=== PATIENT | female | born 1965 | race Caucasian/White ===

== ENCOUNTER 2022-06-09 13:45 | Outpatient (CLI) | payer BC | END 2022-06-09 13:46 | disposition home or self-care (01) | LOC: TBSIIMAG 13:45 | PROVIDERS: ATTEND Specialist | DX: M51.16 Intervertebral disc disorders with radiculopathy, lumbar region (principal); M47.26 Other spondylosis with radiculopathy, lumbar region; M48.061 Spinal stenosis, lumbar region without neurogenic claudication | CPT/HCPCS: 72148 ==

== ENCOUNTER 2023-09-24 13:06 | Outpatient (CLI) | payer BC | END 2023-09-24 13:07 | disposition home or self-care (01) | LOC: LABBT 13:06 | PROVIDERS: ATTEND Surgery | DX: Z01.810 Encounter for preprocedural cardiovascular examination (principal); M54.16 Radiculopathy, lumbar region; M71.38 Other bursal cyst, other site | CPT/HCPCS: 80048; 85027; 85610; 85730; 86850; 86900; 86901; 93005; 93010 ==

== ENCOUNTER 2023-09-28 06:02 | Inpatient (IN) | payer BC ==
[2023-09-24 13:39] VITALS: BMI 26.5
[2023-09-24 14:24] LABS: Hematocrit 42.1 % (34.9-44.5); Mean Corpuscular HGB CONC 33.3 g/dL (32.0-36.0); Mean Corpuscular Volume 87.2 fl (81.6-98.3); Mean Platelet Volume 8.9 fl (7.4-10.4); Platelet Count 343 10x3/uL (150-450); RBC Distribution Width 13.2 % (11.5-14.5); Red Blood Cell (RBC) Count 4.83 10x6/uL (3.90-5.03); White Blood Cell (WBC) Count 5.3 10x3/uL (3.5-10.5)
[2023-09-24 14:29] LABS: INR-International Normal Ratio 0.9; PTT 27.3 sec (22.0-33.0); Prothrombin Time 9.6 sec (9.5-12.1)
[2023-09-24 14:30] LABS: Anion Gap 13 mmol/L (10-20); BUN (Urea Nitrogen) 9 mg/dL (9.8-20.1); Calc. Creatinine Clearance 0 mL/min (70-130); Calcium 9.5 mg/dL (7.8-10.44); Carbon Dioxide 27 mmol/L (22-29); Chloride 101 mmol/L (98-107); Estimated GFR 79; Glucose 92 mg/dL (70-105); Potassium 4.5 mmol/L (3.5-5.1); Sodium 136 mmol/L (136-145)
[2023-09-28] MEDS ORDERED: Vancomycin 1 GM VIAL ONE (06:55)
[2023-09-28] MEDS ORDERED: Thrombin 5000 UNITS/5 ML VIAL ONE (06:55)
[2023-09-28] MEDS ORDERED: Sodium Chloride 0.9% 100 ML ONE ×2 (07:16→08:44)
[2023-09-28] MEDS ORDERED: CEFAZOLIN 2 GM VIAL ONE (07:16)
[2023-09-28] MEDS ORDERED: Esmolol 100 MG/10 ML VIAL ONE (07:19)
[2023-09-28] MEDS ORDERED: Ondansetron PF 4 MG/2 ML Vial ONE (07:19)
[2023-09-28] MEDS ORDERED: Rocuronium Bromide 10 MG/ML (10ML VIAL) ONE (07:19)
[2023-09-28] MEDS ORDERED: PROPOFOL 60 ML ONE (07:19)
[2023-09-28] MEDS ORDERED: Dexamethasone 4 mg/ml Vial ONE (07:19)
[2023-09-28] MEDS ORDERED: Midazolam HCl 2 mg/2 ml Vial ONE (07:20)
[2023-09-28] MEDS ORDERED: Lidocaine 1% PF 5 ML VIAL ONE (07:20)
[2023-09-28] MEDS ORDERED: HYDROmorphone 2 MG/ML VIAL ONE (07:20)
[2023-09-28] MEDS ORDERED: Ketorolac Tromethamine 30 MG (1 mL) VIAL ONE (08:05)
[2023-09-28] MEDS ORDERED: Phenylephrine 10 MG/ML VIAL ONE (08:44)
[2023-09-28] MEDS ORDERED: Dexamethasone 20 MG/5 ML VIAL ONE (08:55)
[2023-09-28] MEDS ORDERED: SUGAMMADEX SODIUM 200 MG/2 ML VIAL ONE (09:53)
[2023-09-28] MEDS ORDERED: diphenhydrAMINE 25 MG CAP PO PRN (10:47)
[2023-09-28] MEDS ORDERED: Ketorolac Tromethamine 30 MG (1 mL) VIAL IVP PRN (10:47)
[2023-09-28] MEDS ORDERED: Acetaminophen 325 MG TAB PO PRN (10:47)
[2023-09-28] MEDS ORDERED: Milk Of Magnesia 30 ML UDCUP PO PRN (10:47)
[2023-09-28] MEDS ORDERED: tiZANidine HCl 4 MG TAB PO PRN (10:50)
[2023-09-28] MEDS ORDERED: fentaNYL 50 mcg/mL 1 mL Vial ONE (10:52)
[2023-09-28] MEDS ORDERED: Ondansetron PF 4 MG/2 ML Vial IVP PRN (11:30)
[2023-09-28] MEDS ORDERED: Naloxone HCl 0.4 mg/ml Vial IV PRN (11:30)
[2023-09-28] MEDS ORDERED: Zolpidem Tartrate 5 MG TAB PO PRN (11:30)
[2023-09-28] MEDS ORDERED: Fentanyl CADD 100 ML IVPB SCH (11:30)
[2023-09-28] MEDS ORDERED: Promethazine HCl 25 MG/ML VIAL IM PRN (11:30)
[2023-09-28] MEDS: Sodium Chloride 0.9% 1,000 ML IV SCH (13:45)
[2023-09-28] MEDS: Dexamethasone 4 MG TAB PO SCH (16:39)
[2023-09-28] MEDS: CEFAZOLIN 2 GM in Sodium Chloride 0.9% 100 ML IVPB SCH (16:39)
[2023-09-28] MEDS: Ondansetron PF 4 MG/2 ML Vial IVP PRN (20:37)
[2023-09-28] MEDS: Pregabalin 75 MG CAP PO SCH (20:44)
[2023-09-29 06:39] LABS: #Monocytes 1.2 thou/uL (0.11-0.59); #Neutrophils 10.5 thou/uL (1.40-6.50); %Basophils 0.1 % (0.0-1.0); %Lymphocytes 8.2 % (21.0-51.0); %Monocytes 9.1 % (0.0-10.0); %Neutrophils 82.2 % (42.0-75.0); Hematocrit 37.1 % (36.0-47.0); Hemoglobin 12.3 g/dL (12.0-16.0); Mean Corpuscular HGB CONC 33.2 g/dL (32.0-36.0); Mean Corpuscular Hemoglobin 29.4 pg (27.0-31.0); Mean Corpuscular Volume 88.5 fl (78.0-98.0); Mean Platelet Volume 8.9 fL (7.4-10.4); Platelet Count 309 10x3/uL (130-400); RBC Distribution Width 13.2 % (11.5-14.5); Red Blood Cell (RBC) Count 4.19 mill/uL (4.20-5.40); White Blood Cell (WBC) Count 12.8 10x3/uL (4.8-10.8)
[2023-09-29 06:59] LABS: Anion Gap 15 mmol/L (10-20); BUN (Urea Nitrogen) 11 mg/dL (9.8-20.1); Calc. Creatinine Clearance 84 mL/min (70-130); Calcium 9.1 mg/dL (7.8-10.44); Carbon Dioxide 25 mmol/L (22-29); Chloride 99 mmol/L (98-107); Estimated GFR 91; Glucose 132 mg/dL (70-105); Potassium 4.3 mmol/L (3.5-5.1); Sodium 135 mmol/L (136-145)
[2023-09-29] MEDS: Spironolactone 25 MG TAB PO SCH (08:27)
[2023-09-29] MEDS: SUMAtriptan Succinate 50 MG TAB PO PRN (09:53)
[2023-09-29] MEDS: HYDROcodone/Acetaminophen 10/325 mg Tablet PO PRN (12:58)
[2023-09-30] MEDS: HYDROcodone/Acetaminophen 10/325 mg Tablet PO PRN (01:35)
[2023-10-01 15:56] VITALS: BP 162/82; TEMP 98
[2023-10-01] MEDS: PROTRIPTYLINE PO SCH (20:00)
== END 2023-10-01 18:30 | disposition home or self-care (01) | DRG 460 ==
LOC: SDC 06:02 → SJJU 10:47 → SDC 09-29 08:59 → SJJU 09-29 09:00
PROVIDERS: ADMIT Surgery; ATTEND Surgery
PROC: 0SG0071 Fusion of Lumbar Vertebral Joint with Autologous Tissue Substitute, Posterior Approach, Posterior Column, Open Approach (ICD-10-PCS; principal; 2023-09-28)
PROC: 01NB0ZZ Release Lumbar Nerve, Open Approach (ICD-10-PCS; 2023-09-28)
PROC: 3E033XZ Introduction of Vasopressor into Peripheral Vein, Percutaneous Approach (ICD-10-PCS; 2023-09-28)
DX: M71.38 Other bursal cyst, other site (principal); G96.09 Other spinal cerebrospinal fluid leak; M54.16 Radiculopathy, lumbar region; M43.16 Spondylolisthesis, lumbar region; M48.061 Spinal stenosis, lumbar region without neurogenic claudication; Z79.899 Other long term (current) drug therapy; Z98.890 Other specified postprocedural states; Z88.8 Allergy status to other drugs, medicaments and biological substances
CPT/HCPCS: 36415; 80048; 85025; 85027; 85610; 85730; 86850; 86900; 86901; A4314; C1713; C1889; J1100; J1170; J1885; J2250; J2371; J2405; J2704; J3010; J3370; J3490; J8540